=== PATIENT | female | born 1955 | race Caucasian/White ===

== ENCOUNTER → 2021-02-24 10:23 | Outpatient (CLI) | payer MEDICARE, SELFPAY ==
[2021-02-24 20:11] LABS: Alanine Aminotransferase 16 IU/L (<35); Albumin 4.3 g/dL (3.5-5.0); Albumin Globulin Ratio 1.3 (1.0-2.8); Alkaline Phosphatase 79 U/L (38-126); Aspartate Aminotransferase 29 IU/L (14-36); BUN Creatinine Ratio 10.9 (6-22); Bilirubin Total 0.5 mg/dL (0.2-1.3); Blood Urea Nitrogen 7 mg/dL (7-17); Calcium 9.8 mg/dL (8.4-10.2); Carbon Dioxide 26 mmol/L (22-32); Chloride 100 mmol/L (98-107); Cholesterol 160 mg/dL (140-199); Estimated Glomerular Filt Rate > 60.0 mL/min (>60); Globulin 3.3 g/dL (1.7-4.1); Glucose 93 mg/dL (80-110); HDL Cholesterol 78 mg/dL (40-60); HEMOLYSIS 15 (0-50); LDL Cholesterol Calculated 67 mg/dL (<100); Potassium 4.2 mmol/L (3.4-5.1); Sodium 137 mmol/L (137-145); Total Protein 7.6 g/dL (6.3-8.2); Triglycerides 73 mg/dL (35-150)
== END ==
PROVIDERS: PCP Physician Assistant Medical; Visit Provider Physician Assistant Medical
DX: E78.5 Hyperlipidemia, unspecified (principal); F32.9 Major depressive disorder, single episode, unspecified; F41.9 Anxiety disorder, unspecified; G71.12 Myotonia congenita; Q87.89 Other specified congenital malformation syndromes, not elsewhere classified
CPT/HCPCS: 80053; 80061

== ENCOUNTER → 2022-01-27 13:43 | Outpatient (CLI) | payer MEDICARE, SELFPAY ==
[2022-01-27 18:45] LABS: Add Manual Diff / Slide Review NO; Basophils Absolute Auto 0 /uL (0-100); Basophils Percent Auto 0.4 % (0-2); Eosinophils Absolute Auto 100 /uL (0-450); Eosinophils Percent Auto 1.8 % (2-4); Hematocrit 42.4 % (36-46); Hemoglobin 14.3 g/dL (12.0-16.0); Lymphocytes Absolute Auto 1500 /uL (1100-4500); Lymphocytes Percent Auto 22.2 % (25-40); Mean Corpuscular HGB Conc 33.7 % (30-36); Mean Corpuscular Hemoglobin 30.3 PG (26-34); Monocytes Absolute Auto 500 /uL (0-900); Monocytes Percent Auto 7.9 % (3-14); Neutrophils Absolute Auto 4600 /uL (1500-7000); Neutrophils Percent Auto 67.7 % (50-75); Platelet Count 302 X10^3/uL (150-400); Red Blood Cell Count 4.71 X10^6/uL (4.0-5.2); Red Cell Distribution Width 13.6 % (11.6-14.8); White Blood Cell Count 6.8 X10^3/uL (4.5-11.0)
[2022-01-27 19:07] LABS: Alanine Aminotransferase 14 IU/L (<35); Albumin 4.6 g/dL (3.5-5.0); Albumin Globulin Ratio 1.3 (1.0-2.8); Alkaline Phosphatase 81 U/L (38-126); Aspartate Aminotransferase 34 IU/L (14-36); BUN Creatinine Ratio 13.2 (6-22); Blood Urea Nitrogen 10 mg/dL (7-17); Calcium 9.4 mg/dL (8.4-10.2); Carbon Dioxide 26 mmol/L (22-32); Chloride 100 mmol/L (98-107); Cholesterol 271 mg/dL (140-199); Estimated Glomerular Filt Rate > 60 mL/min (>60); Globulin 3.5 g/dL (1.7-4.1); Glucose 103 mg/dL (80-110); HDL Cholesterol 81 mg/dL (40-60); HEMOLYSIS < 15 (0-50); Hemoglobin A1C% w Est Avg Glu 5.6 % (4.0-6.0); LDL Cholesterol Calculated 166 mg/dL (<100); Potassium 3.9 mmol/L (3.4-5.1); Sodium 137 mmol/L (137-145); Total Protein 8.1 g/dL (6.3-8.2); Triglycerides 119 mg/dL (35-150)
[2022-01-29 14:37] LABS: Candida species Negative (Negative); Gardnerella vaginalis Negative (Negative); Trichomoas vaginalis Negative (Negative)
== END ==
PROVIDERS: PCP Physician Assistant Medical; Visit Provider Physician Assistant
DX: Z01.419 Encounter for gynecological examination (general) (routine) without abnormal findings; E78.5 Hyperlipidemia, unspecified; R73.03 Prediabetes; N89.8 Other specified noninflammatory disorders of vagina
CPT/HCPCS: 80053; 80061; 83036; 85025; 87480; 87510; 87660

== ENCOUNTER → 2022-05-25 15:33 | Outpatient (CLI) | payer MEDICARE, SELFPAY ==
--- NOTE | 2022-05-25 15:35 | DI.US.S_ITS ---
PROCEDURE: US PERIPH VENOUS LOW EXTREM LT INDICATIONS: R POPLITEAL PAIN TECHNIQUE: Real-time imaging, as well as color and pulse Doppler interrogation, were performed of the lower extremity deep veins from the inguinal ligament to the popliteal fossa. COMPARISON: None. FINDINGS: The common femoral, femoral and popliteal veins are normally compressible, and free of intraluminal thrombus. Color and pulse Doppler demonstrate normal phasic intraluminal flow. There is normal augmentation response to distal compression maneuver. No sonographic abnormality seen in the region of interest in the medial posterior left knee. IMPRESSION: No deep venous thrombosis identified within the left lower extremity. No soft tissue abnormality identified in the area of interest. Dictated by: Sudeep MCKEON Interpreted: Filipe Frye MD on 05/25/2022 at 16:32 Approved by: Filipe Frye M.D. on 05/31/2022 at 14:45
== END ==
PROVIDERS: PCP Physician Assistant Medical; Referring Provider Physician Assistant Medical; Visit Provider Physician Assistant Medical
DX: I83.10 Varicose veins of unspecified lower extremity with inflammation (principal); M79.661 Pain in right lower leg
CPT/HCPCS: 93971

== ENCOUNTER → 2023-04-18 12:09 | Outpatient (CLI) | payer MEDICARE, SELFPAY ==
[2023-04-18 20:10] LABS: Add Manual Diff / Slide Review NO; Basophils Absolute Auto 0 /uL (0-100); Basophils Percent Auto 0.6 % (0-2); Eosinophils Absolute Auto 100 /uL (0-450); Eosinophils Percent Auto 1.5 % (2-4); Hematocrit 40.3 % (36-46); Hemoglobin 14.1 g/dL (12.0-16.0); Lymphocytes Absolute Auto 1400 /uL (1100-4500); Lymphocytes Percent Auto 27.5 % (25-40); Mean Corpuscular Hemoglobin 31.4 PG (26-34); Mean Corpuscular Volume 89.8 fL (80-100); Monocytes Absolute Auto 400 /uL (0-900); Monocytes Percent Auto 7.6 % (3-14); Neutrophils Absolute Auto 3300 /uL (1500-7000); Neutrophils Percent Auto 62.8 % (50-75); Platelet Count 281 X10^3/uL (150-400); Red Blood Cell Count 4.49 X10^6/uL (4.0-5.2); Red Cell Distribution Width 13.5 % (11.6-14.8); White Blood Cell Count 5.2 X10^3/uL (4.5-11.0)
[2023-04-18 20:20] LABS: Alanine Aminotransferase 18 IU/L (<35); Albumin 4.5 g/dL (3.5-5.0); Albumin Globulin Ratio 1.3 (1.0-2.8); Alkaline Phosphatase 64 U/L (38-126); Aspartate Aminotransferase 30 IU/L (14-36); BUN Creatinine Ratio 9.8 (6-22); Bilirubin Total 0.7 mg/dL (0.2-1.3); Blood Urea Nitrogen 8 mg/dL (7-17); Calcium 9.3 mg/dL (8.4-10.2); Carbon Dioxide 26 mmol/L (22-32); Chloride 101 mmol/L (98-107); Cholesterol 169 mg/dL (140-199); Estimated Glomerular Filt Rate > 60 mL/min (>60); Globulin 3.4 g/dL (1.7-4.1); Glucose 103 mg/dL (80-110); HDL Cholesterol 84 mg/dL (40-60); HEMOLYSIS 22 (0-50); LDL Cholesterol Calculated 68 mg/dL (<100); Potassium 4.1 mmol/L (3.4-5.1); Sodium 136 mmol/L (137-145); Total Protein 7.9 g/dL (6.3-8.2); Triglycerides 87 mg/dL (35-150)
[2023-04-18 20:45] LABS: TSH w/ Reflex to FT4 2.45 uIU/mL (0.47-4.68)
[2023-04-20 00:34] LABS: x Labcorp Estim. Avg Glu (eAG) 117 mg/dL (.); x Labcorp Hemoglobin A1c 5.7 % (4.8-5.6)
== END ==
PROVIDERS: PCP Physician Assistant Medical; Visit Provider Physician Assistant
DX: R73.03 Prediabetes (principal); E78.5 Hyperlipidemia, unspecified; F32.9 Major depressive disorder, single episode, unspecified; F41.9 Anxiety disorder, unspecified
CPT/HCPCS: 80053; 80061; 83036; 84443; 85025

== ENCOUNTER → 2023-05-03 11:54 | Outpatient (CLI) | payer MEDICARE, SELFPAY | PROVIDERS: Family Provider Physician Assistant Medical; PCP Physician Assistant Medical; Referring Provider Physician Assistant; Visit Provider Surgery | DX: L59.8 Other specified disorders of the skin and subcutaneous tissue related to radiation (principal) | CPT/HCPCS: 99203; 99212 ==

== ENCOUNTER → 2023-11-23 08:57 | Outpatient (CLI) | payer MEDICARE, SELFPAY ==
--- NOTE | 2023-11-23 08:59 | DI.US.S_ITS ---
ULTRASOUND OF RIGHT BREAST: 11/23/2023 CLINICAL: Palpable right breast lump post right mastectomy. No prior exams were available for comparison. Color flow and real-time ultrasound of the right breast were performed. Cagle scale images of the real-time examination were reviewed. There is a possible 0.9 cm x 0.3 cm x 0.8 cm clustered micro cyst in the right breast at 12 o'clock middle depth 5 cm from the nipple. IMPRESSION: PROBABLY BENIGN The possible 0.9 cm x 0.3 cm x 0.8 cm clustered micro cysts in the right breast is probably benign. A follow-up ultrasound in 6 months is recommended. Clinical evaluation also recommended. Reimaging sooner may be obtained if worsening clinically. This exam was interpreted at Station ID: [id number]. Electronically Signed By: Filipe Frye M.D. lc/:11/23/2023 10:43:48 letter sent: Followup Recommended Ultrasound BI-RADS: 3 Probably benign
== END ==
PROVIDERS: Family Provider Physician Assistant Medical; PCP Physician Assistant; Referring Provider Physician Assistant; Visit Provider Physician Assistant
DX: R92.8 Other abnormal and inconclusive findings on diagnostic imaging of breast (principal); N63.10 Unspecified lump in the right breast, unspecified quadrant; Z85.3 Personal history of malignant neoplasm of breast; Z90.10 Acquired absence of unspecified breast and nipple
CPT/HCPCS: 76642

== ENCOUNTER 2023-12-10 11:15 | Emergency (ER) | payer MEDICARE, SELFPAY ==
[2023-12-10 11:56] VITALS: BP 177/96; PULSE 76; RESP 16; TEMP 36.7; O2SAT 96; BMI 31.4
--- NOTE | 2023-12-10 12:58 | ED_ITS ---
HPI - Skin/Abscess/Foreign Bdy <AURORA Varela - Last Filed: 12/10/23 13:04> General Chief complaint: Skin/Abscess/Foreign Body Stated complaint: wound on lt side poss infected Time Seen by Provider: 12/10/23 12:39 Source: patient Mode of arrival: Ambulatory History of Present Illness HPI narrative: 68-year-old female, with history of bilateral mastectomy, presents to the emergency department with a wound underneath her left axilla/mastectomy flap site that was noticed 2 days ago. Patient has a similar wound on her right side that is being treated with cephalexin for 10 days. Patient is 5 days into her antibiotic regimen at this time. Patient reports that the wound has improved over the last couple of days since she has been addressing the wound. Patient reports that the area is ?fried? secondary to the radiation therapy she received in the past. Related Data Previous Rx's Medication Instructions Recorded zolmitriptan 5 mg tablet (Zomig) See Rx Instructions PO .COMPLEX 03/31/21 #14 tabs ipratropium bromide 21 mcg (0.03 1 spray intranasal ONCE PRN 02/24/ %) nasal spray allergy symptoms #30 mL albuterol sulfate 90 mcg/actuation 2 puff inhalation Q4-6H PRN 08/17/23 aerosol inhaler shortness of breath or wheezing #8.5 grams Left breast prosthesis #1 ea 10/16/23 Mastectomy bra #2 ea 10/16/23 clobetasol 0.05 % scalp solution 1 applic topical DAILY #50 mL 10/16/23 escitalopram oxalate 20 mg tablet See Rx Instructions .Route 10/16/23 .COMPLEX #90 tabs lorazepam 0.5 mg tablet 0.5 mg PO BEDTIME PRN sleep #10 10/16/23 tabs atorvastatin 10 mg tablet 10 mg PO BEDTIME #90 tabs 11/21/23 cephalexin 500 mg capsule 500 mg PO TID 10 days #30 caps 12/04/23 Allergies Allergy/AdvReac Type Severity Reaction Status Date / Time alprazolam [From Xanax] Allergy Unknown UNKNOWN/ALP Verified 11/21/23 13:58 RAZOLAM clarithromycin [From Biaxin] Allergy Unknown CLARITHROMYCIN/ Verified 11/21/23 13:58 REACTION UNKNOWN oxycodone [From Percocet] Allergy Unknown Verified 11/21/23 13:58 sertraline [From Zoloft] Allergy Unknown UNKNOWN/SER Verified 11/21/23 13:58 TRALINE aspirin [From Percodan] AdvReac Intermediate Abdominal Verified 11/21/23 13:58 Pain azithromycin [From Zithromax] AdvReac Intermediate Vomiting Verified 11/21/23 13:58 Review of Systems <AURORA Varela - Last Filed: 12/10/23 13:04> Review of Systems Narrative: Narrative: See HPI. GENERAL: Denies chills, fatigue, fever, sweats. HEENT: Denies sinus pain, ear pain, sore throat, difficulty swallowing, dizziness. RESPIRATORY: Denies dyspnea, cough, wheezing, sputum. CARDIOVASCULAR: Denies chest pain, palpitations, edema. GASTROINTESTINAL: Denies nausea, vomiting, abdominal pain, diarrhea, constipation. : Denies dysuria, frequency, incontinence, hematuria, urinary retention, flank pain. MSK: Denies weakness, joint pain, or bony pain. SKIN: Denies rash, or pruritis. Endorses wound of left axilla. NEUROLOGIC: Denies weakness, dizziness, headache, numbness, confusion. PSYCHIATRIC: No concerning psychosocial issues. Patient History <AURORA Varela - Last Filed: 12/10/23 13:04> Surgical History H/O lymph node biopsy History of cholecystectomy H/O breast reconstruction H/O breast biopsy History of bilateral mastectomy Social History Smoking Status: Never smoker Smoking Status: Never smoker Substance Use Type: does not use Exam <AURORA Varela - Last Filed: 12/10/23 13:04> Narrative Exam Narrative: Exam Narrative: GENERAL: This is a well-nourished, well-developed patient, in no acute distress HEAD: Atraumatic. Normocephalic. RESPIRATORY: Respiratory rate and effort are normal. MSK: Moves all extremities. Normal range of motion, no clubbing or edema. Neurovascularly intact. NEURO: A&O x 3. SKIN: Warm, dry, no rashes or lesions noted. 2 cm horizontal wound under left axilla/along edges of mastectomy flap with purulent drainage. Wound culture obtained and site redressed. Initial Vital Signs Initial Vital Signs: Vital Signs Temperature 98.1 F 12/10/23 11:56 Pulse Rate 76 12/10/23 11:56 Respiratory Rate 16 12/10/23 11:56 Blood Pressure 177/96 H 12/10/23 11:56 Pulse Oximetry 96 12/10/23 11:56 Oxygen Delivery Method Room Air 12/10/23 11:56 Reviewed <Gómez Delong DO - Last Filed: 12/10/23 13:14> Initial Vital Signs Initial Vital Signs: Vital Signs Temperature 98.1 F 12/10/23 11:56 Pulse Rate 76 12/10/23 11:56 Respiratory Rate 16 12/10/23 11:56 Blood Pressure 177/96 H 12/10/23 11:56 Pulse Oximetry 96 12/10/23 11:56 Oxygen Delivery Method Room Air 12/10/23 11:56 Course <AURORA Varela - Last Filed: 12/10/23 13:04> Vital Signs Vital signs: Vital Signs - 8 hr 12/10/23 11:56 Temperature 98.1 F Pulse Rate 76 Respiratory Rate 16 Blood Pressure 177/96 H Pulse Oximetry 96 Oxygen Delivery Method Room Air <DO Debi Ramirez Last Filed: 12/10/23 13:14> Vital Signs Vital signs: Vital Signs - 8 hr 12/10/23 11:56 Temperature 98.1 F Pulse Rate 76 Respiratory Rate 16 Blood Pressure 177/96 H Pulse Oximetry 96 Oxygen Delivery Method Room Air MDM - Skin/Abscess/Foreign Bdy <AURORA Varela - Last Filed: 12/10/23 13:04> Differential Diagnosis Differential diagnosis: Likely abscess of skin or subcutaneous tissue and cellulitis MDM Narrative Medical decision making narrative: 68-year-old female with left axilla wound. Per patient, wound is similar to previous wounds secondary to mastectomy and radiation therapy. Patient states appearance of wound has improved over last couple of days. Patient currently on cephalexin for similar wound on right side. Wound culture obtained and will contact patient with the results. Recommended patient continue with proper wound care. Discussed plan of care and return precautions with patient, who verbalized understanding and was agreeable to course of action. Discharge Plan Departure Patient Disposition: Home Clinical Impression: Skin infection Instructions: DI for Wound Infection Activity Restrictions/Additional Instructions: *You have been diagnosed with a skin infection. We have obtained a sample for culture and will contact you with the results. You're currently on an antibiotic that should be appropriate for this type of wound. We have redressed the wound. Please continue proper wound care, keeping the area is clean and dry as possible. Please feel free to follow up with your family doctor or return to the emergency department for any worsening symptoms. *What to do: *Please continue to take your regular medications as directed. [ ] New medication prescriptions sent to your pharmacy: [ ] [ ] New medication written as a paper prescription [ x] No new medications given *Please follow up with your primary care provider in 2-3 days, call for an appointment. Let them know you were seen in the Emergency Department and that we ask that you be seen in follow up. We will electronically transmit a record of today's note if your PCP is in our system *If you do not have a primary care provider please contact the [facility] Resource line at [phone]. They will ask some questions about your medical history and help get you set up with a doctor in the community. ? Return to ER if you should have any new, worsening or concerning symptoms, such as worsening pain, severe headache, confusion, chest pain, difficulty breathing, fever greater than 101 F, shaking chills, persistent vomiting to the point that you cannot drink fluids, or other new or worsening symptoms. Prescriptions: No Action zolmitriptan [Zomig] 5 mg tablet See Rx Instructions PO .COMPLEX Qty: 14 0RF Rx Instructions: take 1 tab at onset of headache; if no relief, may repeat 1 tab after at least 2 hrs; max = 2 tabs/24 hrs PO cephalexin 500 mg capsule 500 mg PO TID 10 Days Qty: 30 0RF ipratropium bromide 21 mcg (0.03 %) spray,non-aerosol 1 spray intranasal ONCE PRN (Reason: allergy symptoms) Qty: 30 0RF Rx Instructions: administer into each nostril (DME) Left breast prosthesis See Rx Instructions .Route .MEDSUPPLY Qty: 1 0RF Rx Instructions: As directed (DME) Mastectomy bra See Rx Instructions .Route .MEDSUPPLY Qty: 2 0RF Rx Instructions: As directed clobetasol 0.05 % solution 1 applic topical DAILY Qty: 50 1RF lorazepam 0.5 mg tablet 0.5 mg PO BEDTIME PRN (Reason: sleep) Qty: 10 0RF escitalopram oxalate 20 mg tablet See Rx Instructions .ROUTE .COMPLEX Qty: 90 4RF Dose Instruction: TAKE ONE TABLET BY MOUTH EVERY DAY Rx Instructions: TAKE ONE TABLET BY MOUTH EVERY DAY albuterol sulfate 90 mcg/actuation HFA aerosol inhaler 2 puff inhalation Q4-6H PRN (Reason: shortness of breath or wheezing) Qty: 8.5 1RF atorvastatin 10 mg tablet 10 mg PO BEDTIME Qty: 90 1RF Referrals: Kavitha Sherman PA-C [Primary Care Provider] - Stand Alone Forms: Patient Portal/API ED Sign-out <Gómez Delong, - Last Filed: 12/10/23 13:14> Cosign ED Attending Cosignature Attestation: Dr Delong Co-Sign Statement: I was available for consultation during this patient's emergency department visit. This chart is signed by myself for administrative purposes only. I did not have direct contact with this patient during this visit. They were seen independently by the APC.
== END 2023-12-10 13:05 | disposition home or self-care (01) ==
PROVIDERS: Emergency Provider Registered Nurse; Family Provider Physician Assistant Medical; PCP Physician Assistant
DX: L08.9 Local infection of the skin and subcutaneous tissue, unspecified (principal)
CPT/HCPCS: 87070; 87075; 87205; 99281; 99283

== ENCOUNTER 2024-01-10 10:55 | Day surgery (SDC) | payer MEDICARE, SELFPAY ==
[2023-12-28 12:18] VITALS: BMI 33.5
[2024-01-10] VITALS (8 sets, daily range): BP systolic 114–173; BP diastolic 66–85; PULSE 71–96; RESP 12–18; TEMP 36.1–36.8; O2SAT 92–99; BMI 30.9
--- NOTE | 2024-01-10 | PATH_ITS ---
[facility] Accession Number: [id number] No. of containers..01 Tissue . 01 Material submitted: . breast - RIGHT BREAST . 01 Diagnosis: RIGHT BREAST, SIMPLE MASTECTOMY (OF RECONSTRUCTED BREAST): Predominantly adipose tissue with focal cystic fat necrosis, and focal lymphatic ectasia, please see comment. Negative for atypia and malignancy. Skin and skeletal muscle without pathologic abnormalities. Surgical margins: Unremarkable. MRV 01/15/2024 1542 Local . 01 Comment: As no lesion is grossly identified, multiple maintenance representative sections are submitted for microscopic examination showing extensive fatty replacement of breast tissue (without definite breast parenchyma identified). There is a focal area of cystic fat necrosis and focal lymphatic ectasia, on maintenance representative sections examined. . There is no atypia or malignancy. . 01 Electronically signed: . Nupur eFliz MD, Pathologist NPI- [id number] . 01 Gross description: . Received in formalin with two identifiers and R breast. Specimen: An oriented right simple mastectomy of reconstructed breast. Weight: 508 grams. Measurement: 13.9 cm from superior to inferior, 15.2 cm from medial to lateral, 5.4 cm from anterior to posterior. Skin ellipse: Present, with flores wrinkled skin measuring 15.1 x 8.2 cm. Nipple/areola: Not present; however, a branching linear scar measures 10.5 cm in maximum length. Axillary tail: Not present. Margins: The skin ellipse is oriented with a short suture designating superior and a long suture designating lateral, per the requisition. The external margins are yellow, lobulated, and unremarkable with no lesions or skeletal muscle identified. The anterior-superior margin is inked blue, the anterior-inferior margin is inked green, and the posterior margin is inked black. Sliced: From lateral to medial into 17 slices. Lesion: No lesions are identified. Other: The cut surfaces are yellow to white fibroadipose tissue with white fibrous tissue occupying approximately 10% of the cut surface. Fixation; The specimen was removed on 01/10/2024, time not provided. Cold ischemic time cannot be calculated. Total fixation time is approximately 65 hours following additional fixation. Laser Printing Operator sections are submitted as follows: A1: Rep skin with scar and additional rep skin margins. A2: Rep lateral upper outer quadrant. A3; Rep medial upper outer quadrant. A4: Lateral lower outer quadrant. A5: Medial lower outer quadrant. A6: Lateral lower inner quadrant. A7: Medial lower inner quadrant. A8: Lateral upper inner upper quadrant. A9: Medial upper inner quadrant. . The specimen was reviewed by Dr. Araujo. ([id number]) /MRV 01/11/2024 1546 Local . 01 Pathologist provided ICD-10: N63.10, Z85.3 . 01 CPT . 004161 Specimen Comment: A courtesy copy of this report has been sent to [phone] Performed at: 01 [facility] [address] [place] [address], [place], [place] [id number] MD Thor Araujo MD Phone: [phone]
[2024-01-10] MEDS: SCOPOLAMINE 1 PATCH TOP (11:47)
[2024-01-10] MEDS: ACETAMINOPHEN 325 MG TABLET 975 MG PO (11:48)
--- NOTE | 2024-01-10 12:06 | SUR.OPER ---
Supine on padded OR bed, head on pillow, arms secured on padded arm boards at <90 degrees abduction, legs uncrossed, safety belt at thigh
--- NOTE | 2024-01-10 12:14 | PM.PREOP ---
Pre-operative Note Interval Note History & Physical reviewed/Exam performed by Physician: Yes Changes to H&P: No
[2024-01-10] MEDS: LACTATED RINGERS 1,000 ML 21 ML IV (12:30)
[2024-01-10] MEDS: CEFAZOLIN 2 GM/100 ML PREMIX 100 ML IV (12:37)
[2024-01-10] MEDS: BUPIVACAINE 0.25% (PF) VIAL 30 ML INJ (13:42)
--- NOTE | 2024-01-10 14:35 | P.OP_ITS ---
Operative Date/Time/Diagnoses Date of procedure: 01/10/24 Time of procedure: 14:35 Pre-op diagnosis: Right breast imaging abnormality Post-op diagnosis: same Procedure & Clinicians Procedure: Right mastectomy Same procedure as scheduled: Yes Indications: Aarti Valentino is a 68-year-old woman with a history of bilateral beast cancer. She had a left mastectomy and a right lumpectomy followed by bilateral TRAM flap reconstruction. The Left FLAP failed and was subsequently removed. She has significant pain associated with the right flap. She recently had imaging demonstrating an abnormality within the right breast tissue and she requests completion mastectomy. Surgeon: Jose Carlos Doshi Front Office Spec: Benjamin Serra Anesthesia Type: General Operative Notes Findings: Tissue content appears to have been previously radiated. Specimen(s): other (Right breast. Short stitch superior, long stitch lateral.) Estimated Blood Loss (mL): 50 Procedure in detail: Patient was brought to the operating room placed supine on the table. Bilateral lower extremity compression devices were applied. She received 2 g of Ancef prior to skin incision. She was intubated with an endotracheal tube. She was then prepped and draped in sterile fashion. Time-out was performed. An elliptical incision around the nipple areola complex was made with the knife. The subcutaneous tissue was divided with electrocautery. Skin flaps were raised to separate the breast tissue from the skin along the subdermal ple xus. The dissection was extended superior to the clavicle, medial to the sternum, inferior the the inframamary fold and lateral to the anterior border of the latisimus dorsi. Next the breast tissue including the previous tram flap was from the underlying pectoralis fascia. The breast was passed off the field marked short stitch superior long stitch lateral. A 19 K[place]ili Shaan drain was placed into the cavity and secured. The wound was copiously irrigated and homeostasis was ensured. The mastectomy was closed with 3 0 Vicryl for the subcutaneous tissue and the skin was closed with 4 0 Monocryl followed by the application of Dermabond. Patient tolerated procedure well she emerged from anesthesia was extubated and transferred to recovery room in stable condition. Complications: none Post-operative Condition: stable Disposition: same day surgery
[2024-01-10] MEDS: MORPHINE IR 15 MG TABLET PO (15:56)
[2024-01-10 16:03] LABS: Alanine Aminotransferase 23 IU/L (<35)
[2024-01-10 16:57] LABS: HIV 1 & 2 Ab/Ag 4th Gen Combo NEGATIVE (NEGATIVE); Hep C Virus Ab w/Reflex Quant NEGATIVE s/c (NEGATIVE); Hepatitis B Surface Antigen NEGATIVE s/c (NEGATIVE)
[2024-01-12 07:38] LABS: Hepatitis B Surf Ab Qualitativ Non Reactive (.)
== END 2024-01-10 15:57 | disposition home or self-care (01) ==
PROVIDERS: Family Provider Physician Assistant Medical; PCP Physician Assistant; Referring Provider Surgery; Visit Provider Surgery
PROC: 0HTT0ZZ Resection of Right Breast, Open Approach (ICD-10-PCS; CPT 19303; principal; 2024-01-10 11:45)
DX: R92.8 Other abnormal and inconclusive findings on diagnostic imaging of breast (principal); N64.4 Mastodynia; Z85.3 Personal history of malignant neoplasm of breast
CPT/HCPCS: 19303; 36415; J0690; J2250; J2274; J2405; J2704; J3010

== ENCOUNTER → 2024-03-13 12:26 | Outpatient (CLI) | payer MEDICARE, SELFPAY ==
[2024-03-13 19:29] LABS: Add Manual Diff / Slide Review NO; Basophils Absolute Auto 0 /uL (0-100); Basophils Percent Auto 0.5 % (0-2); Eosinophils Absolute Auto 100 /uL (0-450); Eosinophils Percent Auto 1.3 % (2-4); Hematocrit 43.5 % (36-46); Lymphocytes Absolute Auto 1900 /uL (1100-4500); Lymphocytes Percent Auto 26.2 % (25-40); Mean Corpuscular HGB Conc 34.3 % (30-36); Mean Corpuscular Hemoglobin 31.4 PG (26-34); Mean Corpuscular Volume 91.6 fL (80-100); Monocytes Absolute Auto 600 /uL (0-900); Monocytes Percent Auto 7.9 % (3-14); Neutrophils Absolute Auto 4600 /uL (1500-7000); Neutrophils Percent Auto 64.1 % (50-75); Platelet Count 298 X10^3/uL (150-400); Red Blood Cell Count 4.76 X10^6/uL (4.0-5.2); Red Cell Distribution Width 13.7 % (11.6-14.8); White Blood Cell Count 7.1 X10^3/uL (4.5-11.0)
[2024-03-13 20:07] LABS: Hemoglobin A1C% w Est Avg Glu 5.6 % (4.0-6.0)
[2024-03-13 20:24] LABS: Alanine Aminotransferase 19 IU/L (<35); Albumin 4.7 g/dL (3.5-5.0); Albumin Globulin Ratio 1.4 (1.0-2.8); Alkaline Phosphatase 73 U/L (38-126); Aspartate Aminotransferase 36 IU/L (14-36); BUN Creatinine Ratio 14.4 (6-22); Bilirubin Total 0.8 mg/dL (0.2-1.3); Blood Urea Nitrogen 13 mg/dL (7-17); Calcium 9.7 mg/dL (8.4-10.2); Carbon Dioxide 26 mmol/L (22-32); Chloride 106 mmol/L (98-107); Cholesterol 210 mg/dL (140-199); Estimated Glomerular Filt Rate > 60 mL/min (>60); Globulin 3.4 g/dL (1.7-4.1); Glucose 102 mg/dL (80-110); HDL Cholesterol 91 mg/dL (40-60); HEMOLYSIS 21 (0-50); LDL Cholesterol Calculated 103 mg/dL (<100); Potassium 4.1 mmol/L (3.4-5.1); Sodium 139 mmol/L (137-145); Total Protein 8.1 g/dL (6.3-8.2); Triglycerides 80 mg/dL (35-150)
[2024-03-13 20:35] LABS: TSH w/ Reflex to FT4 2.63 uIU/mL (0.47-4.68)
== END ==
PROVIDERS: Family Provider Physician Assistant Medical; PCP Physician Assistant; Visit Provider Physician Assistant Medical
DX: E78.00 Pure hypercholesterolemia, unspecified (principal); L65.9 Nonscarring hair loss, unspecified; R73.03 Prediabetes; Z79.899 Other long term (current) drug therapy
CPT/HCPCS: 80053; 80061; 83036; 84443; 85025

== ENCOUNTER → 2024-03-28 15:40 | Outpatient (CLI) | payer MEDICARE, SELFPAY ==
--- NOTE | 2024-03-28 15:41 | DI.CT.S_ITS ---
PROCEDURE: CT CHEST W CON INDICATIONS: SOB. Abnormal CXRs TECHNIQUE: After the administration of intravenous contrast, 5 mm thick sections acquired from the pulmonary apices to the posterior costophrenic angles. 1 mm axial lung, 5 mm thick coronal and sagittal reformats and 7 mm axial MIP were acquired. For radiation dose reduction, the following was used: automated exposure control, adjustment of mA and/or kV according to patient size. COMPARISON: [facility] ([place]), CR, XR CHEST 2V, 03/13/2024, 12:26. FINDINGS: Image quality: Diagnostic. Lower Neck: No enlarged lymph nodes. Thyroid: Normal CT appearance. Axillae: No suspicious axillary lymph nodes. There are several surgical clips in each axilla. Chest Wall: Surgical changes of recent mastectomy. There are subcutaneous curvilinear fluid collections in bilateral chest rod anterolaterally measuring roughly 2-2.5 cm in thickness. There is mild adjacent fat stranding and trace peripheral enhancement. Left pectoralis muscle has low-density and there is no discernible fat plane between this in the fluid collection. There is low-density soft tissue thickening extending into the subpleural thorax just beneath the ribs. Bones: Left anterior ribs demonstrate heterogeneous sclerotic appearance of the anterior 4th through 6th arcs. Lungs and Pleura: Linear pleural parenchymal fibrotic changes anteriorly in the left upper lobe underlying the thickened chest wall area. There is retraction and tethering of bronchovascular structures to this region. Minor fibrotic changes are present medially in the right lower lobe at the lung base. No suspicious nodules or masses. No pleural effusion or pleural calcification. Heart: Heart size is normal. No pericardial effusion. Mild coronary calcification. Thoracic Vessels: The aorta and pulmonary arteries demonstrate normal size. Mediastinum and Massiel: No enlarged lymph nodes. Esophagus: No wall thickening. No hiatal hernia. Upper Abdomen: Prior cholecystectomy. Visible portions of upper abdominal organs are otherwise normal. IMPRESSION: Prior mastectomy and probable treatment changes, predominantly in the left chest. There is a low-density appearance to the pectoralis muscle and underlying pleural surface as well as sclerotic regularity of the ribs. The lungs in this area demonstrate underlying atelectatic and fibrotic changes of probable radiation treatment. Dictated by: Honey Cabrera M.D. on 03/28/2024 at 18:24 Approved by: Honey Cabrera M.D. on 03/28/2024 at 18:34
== END ==
PROVIDERS: Family Provider Physician Assistant Medical; PCP Physician Assistant; Referring Provider Physician Assistant; Visit Provider Physician Assistant
DX: R06.02 Shortness of breath (principal); R53.83 Other fatigue; I25.10 Atherosclerotic heart disease of native coronary artery without angina pectoris; Z92.3 Personal history of irradiation; Z90.10 Acquired absence of unspecified breast and nipple; Z90.49 Acquired absence of other specified parts of digestive tract
CPT/HCPCS: 71260; Q9967

== ENCOUNTER → 2024-06-13 14:17 | Outpatient (CLI) | payer MEDICARE, SELFPAY ==
--- NOTE | 2024-06-13 14:18 | DI.US.S_ITS ---
ULTRASOUND OF RIGHT BREAST: 06/13/2024 CLINICAL: Patient returns today to evaluate a focal asymmetry in the right breast. Right breast pain at scar. Right breast palpable 9:00. Comparison is made to exam dated: 11/23/2023 [facility] CT Chest dated 03/28/2024 Color flow and real-time ultrasound of the right breast were performed. Cagle scale images of the real-time examination were reviewed. Status post bilateral mastectomy with interval revision bilateral mastectomy since the prior exam. The previously described possible 0.9 cm x 0.3 cm x 0.8 cm micro cyst in the right chest at 12 o'clock middle depth 5 cm from the nipple is no longer seen. No suspicious mass lesions noted in the right mastectomy site. There is pain overlying region of scarring without associated suspicious findings. No sonographic abnormality at site of palpable concern near 9 o'clock. Redemonstration of prominent post operative fluid collection in the right chest at 9 o'clock likely representing seroma with internal debris and septations. This is not significantly changed when accounting for differences in imaging technique compared to CT chest dated 03/28/2024. This collection measures approximately 6.6 x 3.2 x 4.9 cm in size. IMPRESSION: BENIGN There is no sonographic evidence of malignancy. Status post interval right mastectomy with persistent post operative fluid collection that is likely a seroma. Previously described cluster of microcysts in the right chest at 12 o'clock middle depth are no longer seen. Recommend clinical follow up for persistent or worsening symptoms, or development of any new clinically suspicious findings. Findings and recommendations were conveyed to the patient during today's evaluation. This exam was interpreted at Station ID: [id number]. Electronically Signed By: Robert Mercado M.D. aty/:06/13/2024 15:13:45 ACR BI-RADS Category 2: Benign [id number]
== END ==
LOC: US 14:17
PROVIDERS: Family Provider Physician Assistant Medical; PCP Family Medicine; Referring Provider Surgery; Visit Provider Surgery
DX: Z08 Encounter for follow-up examination after completed treatment for malignant neoplasm (principal); Z85.3 Personal history of malignant neoplasm of breast; Z90.13 Acquired absence of bilateral breasts and nipples
CPT/HCPCS: 76642

== ENCOUNTER → 2025-01-13 11:50 | Outpatient (CLI) | payer MEDICARE, SELFPAY | PROVIDERS: Family Provider Physician Assistant Medical; PCP Physician Assistant; Visit Provider Physician Assistant | DX: Z01.84 Encounter for antibody response examination (principal) | CPT/HCPCS: 86735; 86762; 86765 ==

== ENCOUNTER → 2025-07-10 09:16 | Outpatient (CLI) | payer MEDICARE, SELFPAY ==
[2025-07-10 18:54] LABS: Add Manual Diff / Slide Review NO; Hematocrit 41.1 % (36-46); Hemoglobin 14.0 g/dL (12.0-16.0); Lymphocytes Absolute Auto 2200 /uL (1100-4500); Mean Corpuscular HGB Conc 34.2 % (30-36); Mean Corpuscular Hemoglobin 31.2 PG (26-34); Mean Corpuscular Volume 91.2 fL (80-100); Platelet Count 276 X10^3/uL (150-400)
[2025-07-10 19:29] LABS: Alanine Aminotransferase 18 IU/L (<35); Albumin 4.4 g/dL (3.5-5.0); Albumin Globulin Ratio 1.4 (1.0-2.8); Alkaline Phosphatase 72 U/L (38-126); Blood Urea Nitrogen 10 mg/dL (7-17); Calcium 9.4 mg/dL (8.4-10.2); Carbon Dioxide 28 mmol/L (22-32); Chloride 102 mmol/L (98-107); Cholesterol 188 mg/dL (140-199); Estimated Glomerular Filt Rate > 60 mL/min (>60); Globulin 3.1 g/dL (1.7-4.1); Glucose 113 mg/dL (70-99); HDL Cholesterol 93 mg/dL (40-60); HEMOLYSIS < 15 (0-50); Potassium 3.6 mmol/L (3.4-5.1); Sodium 140 mmol/L (137-145); Total Protein 7.5 g/dL (6.3-8.2); Triglycerides 136 mg/dL (35-150)
[2025-07-10 19:46] LABS: Hemoglobin A1C% w Est Avg Glu 5.7 % (4.0-6.0)
[2025-07-10 19:57] LABS: TSH w/ Reflex to FT4 7.31 uIU/mL (0.47-4.68)
[2025-07-10 20:26] LABS: Free T4, Direct Thyroxine 0.92 ng/dL (0.78-2.19)
== END ==
PROVIDERS: Family Provider Physician Assistant Medical; PCP Physician Assistant; Visit Provider Physician Assistant
DX: F41.9 Anxiety disorder, unspecified (principal); F32.1 Major depressive disorder, single episode, moderate; E78.5 Hyperlipidemia, unspecified; Z79.899 Other long term (current) drug therapy; R73.03 Prediabetes
CPT/HCPCS: 80053; 80061; 83036; 84439; 84443; 85025

== ENCOUNTER → 2025-07-15 14:26 | Outpatient (CLI) | payer MEDICARE, SELFPAY | PROVIDERS: Family Provider Physician Assistant Medical; PCP Family Medicine; Visit Provider Nurse Practitioner Family | DX: L08.9 Local infection of the skin and subcutaneous tissue, unspecified (principal); M17.11 Unilateral primary osteoarthritis, right knee | CPT/HCPCS: 20610; 87070; 87075; 87205; 99213; J1010 ==